=== PATIENT | male | born 1940 | race Caucasian/White ===

== ENCOUNTER 2018-11-16 08:08 | Outpatient (CLI) | payer MEDICARE, OTHER | END 2018-11-16 08:09 | disposition home or self-care (01) | LOC: DI 08:08 | PROVIDERS: ATTEND Internal Medicine | DX: I10 Essential (primary) hypertension (principal); I51.7 Cardiomegaly | CPT/HCPCS: 93306 ==

== ENCOUNTER 2019-01-21 09:51 | Outpatient (CLI) | payer MEDICARE, OTHER | END 2019-01-21 09:52 | disposition home or self-care (01) | LOC: SC 09:51 | PROVIDERS: ATTEND Internal Medicine Pulmonary Disease | DX: R06.81 Apnea, not elsewhere classified (principal); R06.83 Snoring | CPT/HCPCS: 99203; G0463; 99212 ==

== ENCOUNTER 2019-02-03 20:31 | Outpatient (CLI) | payer MEDICARE, OTHER | END 2019-02-03 20:32 | disposition home or self-care (01) | LOC: SC 20:31 | PROVIDERS: ATTEND Internal Medicine Pulmonary Disease | DX: G47.33 Obstructive sleep apnea (adult) (pediatric) (principal) | CPT/HCPCS: 95810 ==

== ENCOUNTER 2019-03-18 15:23 | Outpatient (CLI) | payer MEDICARE, OTHER | END 2019-03-18 15:24 | disposition home or self-care (01) | LOC: SC 15:23 | PROVIDERS: ATTEND Nurse Practitioner Family | DX: G47.33 Obstructive sleep apnea (adult) (pediatric) (principal) | CPT/HCPCS: 99214; G0463; 99212 ==

== ENCOUNTER 2019-03-30 12:24 | Outpatient (CLI) | payer MEDICARE, OTHER ==
--- NOTE | 2019-03-31 01:14 | XRAY Report ---
Reason: DYSPNEA UPON EXERTION Procedure Date: 03/30/2019 Accession Number: [id number] Procedure: XR - Chest 2 View X-Ray CPT Code: 75022 FULL RESULT: EXAM: CHEST RADIOGRAPHY EXAM DATE: 03/30/2019 12:52 PM. CLINICAL HISTORY: DYSPNEA UPON EXERTION. COMPARISON: XR CHEST PA AND LAT 10/15/2008 11:49 AM. TECHNIQUE: 2 views. FINDINGS: Lungs/Pleura: No focal opacities evident. No pleural effusion. No pneumothorax. Normal volumes. Mediastinum: Heart and mediastinal contours are unremarkable. IMPRESSION: No acute cardiopulmonary disease seen. RADIA
== END 2019-03-30 12:25 | disposition home or self-care (01) ==
LOC: DI 12:24
PROVIDERS: ATTEND Internal Medicine
DX: R06.09 Other forms of dyspnea (principal)
CPT/HCPCS: 71046

== ENCOUNTER 2019-04-23 09:53 | Outpatient (CLI) | payer MEDICARE, OTHER ==
[~2019-04-23 09:53] MED LIST: ALBUTEROL NEB 2.5 MG/3 ML INH ONE
[2019-04-23] MEDS ORDERED: ALBUTEROL NEB 2.5 MG/3 ML INH SCH (10:00)
== END 2019-04-23 09:54 | disposition home or self-care (01) ==
LOC: RT 09:53
PROVIDERS: ATTEND Internal Medicine
DX: R06.09 Other forms of dyspnea (principal)
CPT/HCPCS: 94010

== ENCOUNTER 2022-10-17 14:03 | Outpatient (CLI) | payer MEDICARE, OTHER ==
--- NOTE | 2022-10-17 19:16 | XRAY Report ---
PROCEDURE: Chest 2 View X-Ray INDICATIONS: DYSPNEA ON EXERTION TECHNIQUE: 2 views of the chest were acquired. COMPARISON: 03/30/2019 FINDINGS: Surgical changes and devices: None. Lungs and pleura: No pleural effusions or pneumothorax. Lungs are clear. Mediastinum: Mediastinal contours are normal. Heart size is normal. 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 Bones and chest wall: Old healed right-sided rib fractures are new from the prior exam. IMPRESSION: No acute cardiopulmonary findings Reviewed by: Cooper Fair MD on 10/17/2022 6:15 PM [place] Approved by: Cooper Fair MD on 10/17/2022 6:15 PM [place] Station ID: [id number]
== END 2022-10-17 14:04 | disposition home or self-care (01) ==
LOC: RT 14:03
PROVIDERS: ATTEND Nurse Practitioner Family
DX: R06.09 Other forms of dyspnea (principal); I10 Essential (primary) hypertension
CPT/HCPCS: 93005

== ENCOUNTER 2023-03-22 12:28 | Outpatient (CLI) | payer MEDICARE, OTHER ==
--- NOTE | 2023-03-22 16:28 | Ultrasound Report ---
PROCEDURE: Ankle Brachial Index INDICATIONS: BILATERAL LEG PAIN TECHNIQUE: Ankle-brachial indices were obtained bilaterally and recorded. COMPARISONS: None. FINDINGS: Right ankle brachial index (LLUVIA): 1.2 Left ankle brachial index (LLUVIA): 1.2 Healing potential: Ankle pressures >55 mm Hg in non-diabetics and >80 mm Hg in diabetics are likely to achieve primary h ealing of ischemic foot ulcers. Toe pressures >30 mm Hg are likely to achieve primary healing of ischemic foot ulcers, toe or transme tatarsal amputations. IMPRESSION: Normal bilateral ankle-brachial indices. Reviewed by: Chandrakant Briggs MD on 03/22/2023 4:27 PM PDT Approved by: Chandrakant Briggs MD on 03/22/2023 4:27 PM PDT Station ID: [id number]
== END 2023-03-22 12:29 | disposition home or self-care (01) ==
LOC: DI 12:28
PROVIDERS: ATTEND Nurse Practitioner Family
DX: M79.604 Pain in right leg (principal); M79.605 Pain in left leg
CPT/HCPCS: 93922